=== PATIENT | male | born 1970 | race Caucasian/White ===

== ENCOUNTER 2022-10-02 06:43 | Emergency (ER) | payer OTHER ==
[~2022-10-02] VITALS: Ht 172.7 cm; Wt 103.4 kg
--- OUTSIDE RECORDS SUMMARY | ~2022-10-02 | XMS | Continuity of Care Document ---
Demographics + + + | Address | [address] | | | [place] [address] | + + + | Preferred Language | Unknown | + + + | Marital Status | | + + + | Anglican Affiliation | Unknown | + + + | Race | White | + + + | Ethnic Group | Not or | + + + Author + + + | Author | [facility] | + + + | Organization | [facility] | + + + | Address | [address] | | | [place] [address] | + + + | Phone | | + + + Care Team Providers + + + + | Care Superintendent [facility] Name | Role | Phone | + + + + Unavailable | Unavailable | + + + + Unavailable | Unavailable | + + + + Allergies No information. Encounters No information. Functional Status No information. Immunizations No information. Medications No information. Problems + + + + | date | description | facility | + + + + | 2022-09-10 00:00 | Contusion of right lower | [facility] | | | leg | | + + + + | 2022-09-10 11:47 | TYPE 2 DIABETES MELLITUS | [facility] | | | WITHOUT COMPLICATIONS | | + + + + | 2022-09-10 11:47 | OTHER SPECIFIED SOFT | [facility] | | | TISSUE DISORDERS | | + + + + | 2022-09-10 11:47 | CONTUSION OF RIGHT LOWER | [facility] | | | LEG, INITIAL ENCOUNTER | | + + + + | 2022-09-10 11:47 | CONTACT WITH OTHER | [facility] | | | SPECIFIED MACHINERY, | | | | INITIAL EN | | + + + + Procedures No information. Results/Labs No information. Social History + + + + | date | description | facility | + + + + | 2022-09-10 00:00 | Unknown if ever smoked | [facility] | + + + + Vital Signs + + + +---------+ | date | measurement | value | units | + + + +---------+ | 2022-09-10 00:00 | BMI | 33.1 | kg/m2 | + + + +---------+ | 2022-09-10 00:00 | BP_diastolic | 87 | mmHg | + + + +---------+ | 2022-09-10 00:00 | BP_systolic | 128 | mmHg | + + + +---------+ | 2022-09-10 00:00 | heart_rate | 73 | /min | + + + +---------+ | 2022-09-10 00:00 | height_metric | 172.72 | cm | + + + +---------+ | 2022-09-10 00:00 | height_standard | 68 | in | + + + +---------+ | 2022-09-10 00:00 | o2_saturation | 98 | % | + + + +---------+ | 2022-09-10 00:00 | respiration_rate | 17 | /min | + + + +---------+ | 2022-09-10 00:00 | temperature_metric | 37 | C | | | | | | + + + +---------+ | 2022-09-10 00:00 | | 98.6 | F | | | temperature_standar | | | | | d | | | + + + +---------+ | 2022-09-10 00:00 | weight_metric | 98.88 | kg | + + + +---------+ | 2022-09-10 00:00 | weight_standard | 218 | lb | + + + +---------+"
--- OUTSIDE RECORDS SUMMARY | ~2022-10-02 | XMS | Continuity of Care Document ---
Demographics + + + | Address | [address] | | | [place] [address] | + + + | Preferred Language | Unknown | + + + | Marital Status | | + + + | Pentecostalism Affiliation | Unknown | + + + | Race | White | + + + | Ethnic Group | Not or | + + + Author + + + | Author | [facility] | + + + | Organization | [facility] | + + + | Address | [address] | | | [place] [address] | + + + | Phone | | + + + Care Team Providers + + + + | Care Supervisor Hardboard Name | Role | Phone | + [...]
--- OUTSIDE RECORDS SUMMARY | 2022-10-02 06:52 | XMS ---
PreManage Notification: KALYN WILSON Security Personal Development Coach Events No recent Security Events currently on file CRITERIA MET - [facility] - 2 Visits in 30 Days CARE PROVIDERS AMANDA MORGAN Physician Electric [employer] Winder Current PHONE: [phone] [facility] has no Care Guidelines for this patient. E.Zan VISIT COUNT (12 MO.) 2 [facility] TOTAL 2 NOTE: Visits indicate total known visits. ED/C VISIT TRACKING (12 MO.) 10/02/2022 06:[address] [facility] TYPE: Emergency COMPLAINT: - HEMORROID 09/10/2022 11:[address] [facility] TYPE: Emergency COMPLAINT: - R LEG SWOLLEN DIAGNOSES: - Contact with other specified machinery, initial encounter - Contusion of right lower leg, initial encounter - Other specified soft tissue disorders - Type 2 diabetes mellitus without complications INPATIENT VISIT TRACKING (12 MO.) No inpatient visits to display in this time frame [email or web address]
[2022-10-02] MEDS ORDERED: ANUSOL-HC30 GM PR (07:16)
[2022-10-02] MEDS ORDERED: ANUSOL-HC25 MG PR (07:16)
[2022-10-02] MEDS ORDERED: FIBER625 MG PO (07:16)
[2022-10-02] MEDS ORDERED: TOPICAINE113 GM TOP (07:16)
[2022-10-02 07:33] VITALS: BP 124/92
== END 2022-10-02 07:37 | disposition home or self-care (01) ==
LOC: ED 06:43
DX: K64.9 Unspecified hemorrhoids (principal); E11.9 Type 2 diabetes mellitus without complications
CPT/HCPCS: 99282

== ENCOUNTER 2023-08-30 11:31 | Emergency (ER) | payer OTHER ==
[~2023-08-30] VITALS: Ht 172.7 cm; Wt 93.8 kg
[~2023-08-30 11:31] MED LIST: ANUSOL-HC25 MG PR; ANUSOL-HC30 GM PR; FIBER625 MG PO; TOPICAINE113 GM TOP
[2023-08-30] MEDS ORDERED: LIPITOR20 MG PO (13:14)
[2023-08-30] MEDS ORDERED: OZEMPIC2 MG/0.75 (13:14)
[2023-08-30] MEDS ORDERED: GLUCOTROL XL10 MG PO (13:14)
[2023-08-30] MEDS ORDERED: FLUOXETINE HCL20 MG PO (13:15)
[2023-08-30] MEDS ORDERED: OMEPRAZOLE20 MG PO (13:15)
[2023-08-30] MEDS ORDERED: CEPHALEXIN MONOHYDRATE 500 MG CAP PO ONE (13:15)
[2023-08-30] MEDS ORDERED: DIPHTH,PERTUSS(ACELL),TET VAC 0.5 ML SYRINGE IM ONE (13:15)
[2023-08-30] MEDS ORDERED: JARDIANCE25 MG PO (13:15)
[2023-08-30] MEDS ORDERED: VITAMIN D21250 MCG PO (13:16)
[2023-08-30] MEDS ORDERED: CEPHALEXIN500 MG PO (15:20)
[2023-08-30] MEDS ORDERED: HYDROCODON-ACE1 EA10 PO (15:30)
[2023-08-30 16:14] VITALS: BP 115/84
== END 2023-08-30 16:14 | disposition home or self-care (01) ==
LOC: ED 11:31
DX: S61.442A Puncture wound with foreign body of left hand, initial encounter (principal); W29.8XXA Contact with other powered hand tools and household machinery, initial encounter; E11.9 Type 2 diabetes mellitus without complications; I10 Essential (primary) hypertension; Z79.84 Long term (current) use of oral hypoglycemic drugs; Z79.899 Other long term (current) drug therapy; Z23 Encounter for immunization
CPT/HCPCS: 10120; 73130; 90471; 90715; 99283-25; A9270

== ENCOUNTER 2024-03-20 08:32 | Emergency (ER) | payer OTHER ==
[~2024-03-20] VITALS: Ht 172.7 cm; Wt 77.6 kg
[~2024-03-20 08:32] MED LIST changes: +CEPHALEXIN500 MG PO; +FLUOXETINE HCL20 MG PO; +GLUCOTROL XL10 MG PO; +HYDROCODON-ACE1 EA10 PO; +JARDIANCE25 MG PO; +LIPITOR20 MG PO; +OMEPRAZOLE20 MG PO; +OZEMPIC2 MG/0.75; +VITAMIN D21250 MCG PO
[2024-03-20 09:33] LABS: INFLUENZA B NAA NEGATIVE (NEGATIVE); RESPIRATORY SYNCYTIAL VIR NAA NEGATIVE (NEGATIVE)
[2024-03-20 10:13] VITALS: BP 129/93
== END 2024-03-20 10:13 | disposition home or self-care (01) ==
LOC: ED 08:32
PROVIDERS: Emergency Medicine
DX: J06.9 Acute upper respiratory infection, unspecified (principal); E11.9 Type 2 diabetes mellitus without complications; K21.9 Gastro-esophageal reflux disease without esophagitis; I10 Essential (primary) hypertension; Z79.84 Long term (current) use of oral hypoglycemic drugs; Z79.85 Long-term (current) use of injectable non-insulin antidiabetic drugs; Z79.899 Other long term (current) drug therapy
CPT/HCPCS: 71045; 87502; 99285-25; U0002